=== PATIENT | male | born 1960 | race Caucasian/White ===

== ENCOUNTER 2016-08-21 13:30 | Emergency (ER) | payer OTHER ==
--- NOTE | 2016-08-21 13:44 | PDOC ---
History of Present Illness - General Chief Complaint: Injury Stated Complaint: LEFT HAND/THUMB PAIN Time Seen by Provider: 08/21/16 13:34 History Source: Patient Exam Limitations: No Limitations - History of Present Illness Initial Comments: 08/21/16 13:40 56 year old M, right hand dominant, pmh HTN, HLD p/w left 1st metacarpal pain/ base thumb pain since yesterday. The patient was attempting to open up a tight jar. He strained hard and noted that he was having difficulty adducting his left thumb to his finger. Noted pain and swelling with palpation at deep base of left thumb. Denies numbness weakness. Past History - Past Medical History Allergies/Adverse Reactions: Allergies Allergy/AdvReac Type Severity Reaction Status Date / Time No Known Allergies Allergy Unverified 08/21/16 13:51 Home Medications: Ambulatory Orders Losartan/Hydrochlorothiazide [Losartan-Hctz 100-25 mg Tab] 1 each PO DAILY 08/21 Omeprazole 40 mg PO DAILY 08/21/16 Simvastatin 20 mg PO HS 08/21/16 Review of Systems - Review of Systems Able to Perform ROS?: Yes Comments:: 08/21/16 13:42 GENERAL/CONSTITUTIONAL: No fever, weakness. HEAD, EYES, EARS, NOSE AND THROAT: No change in vision. No ear pain or discharge. No sore throat. CARDIOVASCULAR: No chest pain or shortness of breath. RESPIRATORY: No cough, wheezing, or hemoptysis. GASTROINTESTINAL: No abdominal pain, nausea, vomiting, diarrhea, or decreased PO intolerance. GENITOURINARY: No dysuria, frequency, or change in urination. MUSCULOSKELETAL: +left base of thumb pain SKIN: No rash NEUROLOGIC: No headache, vertigo, loss of consciousness, or change in strength/ sensation. ENDOCRINE: No increased thirst. No abnormal weight change. HEMATOLOGIC/LYMPHATIC: No anemia, easy bleeding, or history of blood clots. ALLERGIC/IMMUNOLOGIC: No hives or skin allergy. *Physical Exam - Physical Exam Comments: 08/21/16 13:42 GENERAL: Awake, alert, and fully oriented, in no acute distress. HEAD: No signs of trauma EYES: PERRLA, EOMI, sclera anicteric, conjunctiva clear EXTREMITIES: 2+ radial pulse. sensation intact. flexes and extends 5/5 strength left thumb. Able to abduct, but pain on adduction of thumb. pain elicited on deep palpation of base of left thumb. NEUROLOGICAL: Cranial nerves II through XII grossly intact. Normal speech, normal gait SKIN: Warm, Dry, normal turgor, no rashes or lesions noted. Procedures - Splinting Splint Location: Right: Hand (thumb) Hand-Made Type: orthoglass Splint Type: Yes: Thumb Spica Post-Proc Neuro Vasc Exam: normal Jd Bandage: 4" Sling: No Complications: No Post splint xray: No ED Treatment Course - RADIOLOGY Radiology Studies Ordered: Category Date Time Status FINGER(S) LEFT [RAD] Stat Radiology 08/21/16 13:37 Ordered HAND- LEFT [RAD] Stat Radiology 08/21/16 13:34 Ordered Medical Decision Making - Medical Decision Making 08/21/16 13:43 I suspect that the patient has a thumb sprain. However, will need to r/o ulnar collateral ligament injury in left thumb. Will obtain xrays to r/o fracture. Pt has an appointment with DR. Darnell (ortho) tomorrow. Will place thumb spica splint. 08/21/16 14:11 Thumb spica applied. RICE therapy. Ortho tomorrow. Pt verbalizes understanding and agrees with plan. *DC/Admit/Observation/Transfer Diagnosis at time of Disposition: Left thumb sprain Qualifiers: Encounter type: initial encounter Sprain of finger site: unspecified site Qualified Code(s): S63.602A - Unspecified sprain of left thumb, initial encounter - Discharge Dispostion Disposition: HOME Condition at time of disposition: Stable Admit: No - Referrals Referrals: Lucien Darnell MD [Staff Physician] - - Patient Instructions Printed Discharge Instructions: DI for Ulnar Collateral Ligament Sprain of Thumb Additional Instructions: Take 600 mg ibuprofen every 6 hours as needed for pain. Please leave the splint on until you are evaluated by Dr. Darnell tomorrow. Elevate the hand as much as possible. Ice as needed.
[2016-08-21 13:51] VITALS: BP 118/85; PULSE 54; TEMP 98.1; BMI 31.1
== END 2016-08-21 14:26 | disposition home or self-care (01) ==
LOC: FER 13:30
PROC: 2W3KX1Z Immobilization of Left Finger using Splint (ICD-10-PCS; principal; 2016-08-21)
DX: S63.602A Unspecified sprain of left thumb, initial encounter (principal); X58.XXXA Exposure to other specified factors, initial encounter; Y93.89 Activity, other specified; Y92.9 Unspecified place or not applicable; I10 Essential (primary) hypertension; E78.5 Hyperlipidemia, unspecified
CPT/HCPCS: 73130-TC-LT; 99283-25